=== PATIENT | male | born 1955 | race Caucasian/White ===

== ENCOUNTER → 2020-10-24 | Outpatient (CLI) | payer OTHER ==
[~2020-10-24] MED LIST: ASPIRIN81 MG PO; ATORVASTATIN CA40 MG PO; COZAAR100 MG PO; ECOTRIN81 MG PO; FISH OIL + D31 EACH PO; LOVASTATIN40 MG PO; MULTIVITAMIN1 EACH PO; PLAVIX 75 MG TA75 MG PO
== END ==
LOC: ECHO 12:34 → KOH-I 12:34 → ECHO 13:30
DX: Z01.818 Encounter for other preprocedural examination (principal); I65.23 Occlusion and stenosis of bilateral carotid arteries; I08.1 Rheumatic disorders of both mitral and tricuspid valves
CPT/HCPCS: ECHO; 93306; 93880

== ENCOUNTER 2020-11-10 07:04 | Day surgery (SDC) | payer OTHER ==
[2020-11-10] MEDS ORDERED: ECOTRIN81 MG PO (07:43)
[2020-11-10] MEDS ORDERED: MULTIVITAMIN1 EACH PO (07:44)
[2020-11-10] MEDS ORDERED: ATORVASTATIN CA40 MG PO (07:44)
[2020-11-10] MEDS ORDERED: COZAAR100 MG PO (07:44)
[2020-11-10 08:22] LABS: HEMOGLOBIN 13.7 gm/dl (14.0-17.5); RED BLOOD COUNT 4.59 M/UL (4.20-5.50); WHITE BLOOD COUNT 7.1 K/UL (4.5-11.0)
[2020-11-10 08:50] LABS: BUN/CREATININE RATIO 15 (0-10)
--- NOTE | 2020-11-10 13:52 | NUR ---
1300 PATIENT ARRIVES ON FLOOR WITH SURGERY STAFF. BILATERAL GROIN BANDAGE IN DRY AND INTACT. PATIENT WITH NO PRESENT COMPLAINTS OF PAIN OR DISCOMFORT. WILL CONTINUE TO MONITOR. FAMILY AT BEDSIDE. MD ORDERS TO KEEP PATIENT FLAT FOR 6 HOURS STARTING AT 1150 THIS MORNING. HE WILL BE ABLE TO SIT UP AT 175O.
== END 2020-11-10 19:44 | disposition home or self-care (01) ==
LOC: OR 07:04 → PROG CARE 13:49 → OR 19:44
PROVIDERS: Surgery
DX: I73.9 Peripheral vascular disease, unspecified (principal); I10 Essential (primary) hypertension; E78.5 Hyperlipidemia, unspecified; Z87.891 Personal history of nicotine dependence
CPT/HCPCS: 36415; 71045; 76000; 80053; 81001; 85025; 85610; 85730; 86850; 86900; 86901; 93005; C1714; C1725; C1769; C1887; C2623; J0690; J1644; J2001; J2405; J2704; J2710; J2720; J3010; J7030; J7040; J7050; J7120; Q9962

== ENCOUNTER 2020-12-11 22:24 | Emergency (ER) | payer OTHER ==
[~2020-12-11 22:24] MED LIST changes: -ASPIRIN81 MG PO; -FISH OIL + D31 EACH PO; -LOVASTATIN40 MG PO; -PLAVIX 75 MG TA75 MG PO
[2020-12-12 01:38] LABS: BUN/CREATININE RATIO 12 (0-10)
[2020-12-12 02:29] LABS: HEMOGLOBIN 14.5 gm/dl (14.0-17.5); RED BLOOD COUNT 4.83 M/UL (4.20-5.50); WHITE BLOOD COUNT 8.9 K/UL (4.5-11.0)
[2020-12-12] MEDS ORDERED: LOVASTATIN40 MG PO (02:52)
[2020-12-12] MEDS ORDERED: ASPIRIN81 MG PO (02:52)
[2020-12-12] MEDS ORDERED: PLAVIX 75 MG TA75 MG PO (02:52)
[2020-12-12] MEDS ORDERED: FISH OIL + D31 EACH PO (02:52)
== END 2020-12-12 03:26 | disposition home or self-care (01) ==
LOC: ER1 22:24
PROVIDERS: Physician Assistant
DX: I73.9 Peripheral vascular disease, unspecified (principal); I10 Essential (primary) hypertension; Z90.49 Acquired absence of other specified parts of digestive tract
CPT/HCPCS: 80048; 83735; 85025; 99283